=== PATIENT | female | born 1950 | race African-American/Black ===

== ENCOUNTER 2016-08-12 21:50 | Emergency (ER) | payer MEDICAID ==
[~2016-08-12] VITALS: Ht 154.9 cm; Wt 96.0 kg
[~2016-08-12 21:50] MED LIST: ACET-3161 PO; BENA40TA66 PO; CARI350T PO; DIAZ10TA PO; ESOM40CA PO; FERR-43 PO; FURO-151 PO; IBUP-1636 PO
[2016-08-13 00:17] LABS: CARBON DIOXIDE 25 mEq/L (21-32); CHLORIDE 101 mEq/L (98-107); INR 1.1; PROTHROMBIN TIME 11.6 sec; TROPONIN I < 0.02 ng/mL (0.00-0.04)
[2016-08-13 00:36] LABS: BASOPHILS % 0.1 % (0.0-2.0); HEMOGLOBIN. 9.8 g/dL (12.0-16.0); LYMPHOCYTES % 41.5 % (20.0-50.0); MEAN CORPUSCULAR HEMOGLOBIN 30.6 pg (28.0-32.0); MEAN CORPUSCULAR VOLUME 93.3 fL (81.0-99.0); MEAN PLATELET VOLUME 8.5 fl (7.4-10.4); MONOCYTES % 9.3 % (2.0-8.0); NEUTROPHILS % 49.1 % (40.0-76.0); PLATELET 121 x1000/uL (130-400); RED BLOOD CELL COUNT 3.21 mill/uL (4.2-5.4); RED CELL DISTRIBUTION WIDTH 13.2 % (11.6-14.6)
[2016-08-13] MEDS ORDERED: KETOROLAC 30MG/ML VIAL IV STA (02:24)
[2016-08-13] MEDS ORDERED: POTASSIUM CHLORIDE 20MEQ TABLET SR PO ONE (02:30)
[2016-08-13] MEDS ORDERED: SODIUM CHLORIDE 0.9% 500 ML IV ONE (02:30)
[2016-08-13] MEDS ORDERED: PANTOPRAZOLE SODIUM 40 MG/VIAL IV ONE (04:00)
[2016-08-13] MEDS ORDERED: MAGNESIUM/ALUMINUM HYDROXIDE/SIMETHICONE 30ML UDC PO ONE (04:00)
[2016-08-13 05:04] LABS: CARBON DIOXIDE 28 mEq/L (21-32); CHLORIDE 103 mEq/L (98-107); TROPONIN I < 0.02 ng/mL (0.00-0.04)
[2016-08-13] MEDS ORDERED: HYDRALAZINE 20MG/ML VIAL IV ONE (05:30)
[2016-08-13] MEDS ORDERED: MORPHINE SULFATE 4 MG/ML CPJ (NOT FOR IM USE) IV ONE (05:30)
[2016-08-13 05:52] VITALS: BP 138/65
== END 2016-08-13 06:31 | disposition home or self-care (01) ==
LOC: ER 08-13 02:08
DX: R07.9 Chest pain, unspecified (principal); R10.9 Unspecified abdominal pain; I11.0 Hypertensive heart disease with heart failure; I50.9 Heart failure, unspecified; E11.9 Type 2 diabetes mellitus without complications; Z79.899 Other long term (current) drug therapy
CPT/HCPCS: 36415; 71010; 74176; 80048; 80053; 83880; 84484; 85025; 85610; 93005; 96361; 96374; 96375; 99285; C9113; J0360; J1885; J2270; J7040; Z7610

== ENCOUNTER 2019-08-15 16:30 | Inpatient (IN) | payer MEDICAID ==
[~2019-08-15] VITALS: Ht 156.2 cm; Wt 98.2 kg
[~2019-08-15 16:30] MED LIST changes: -CARI350T PO; +CARI350T28 PO
[2019-08-15] MEDS ORDERED: ENOXAPARIN 80MG/0.8ML SYR SUBCUT ONE (23:00)
[2019-08-16] MEDS ORDERED: IPRATROPIUM/ALBUTEROL 0.5-3(2.5)MG/3ML NEB NEB PRN
[2019-08-16] MEDS ORDERED: CEFAZOLIN 1000MG PREMIX 50 ML IV ONE
[2019-08-16] MEDS ORDERED: GUAIFENESIN 200MG/10ML SUGAR FREE UDC PO PRN
[2019-08-16] MEDS ORDERED: LORAZEPAM 2MG/ML CPJ IV PRN
[2019-08-16] MEDS ORDERED: MORPHINE SULFATE 2 MG/ML CPJ (NOT FOR IM USE) IV PRN
[2019-08-16] MEDS ORDERED: MAGNESIUM/ALUMINUM HYDROXIDE/SIMETHICONE 30ML UDC PO PRN
[2019-08-16] MEDS ORDERED: NA PHOS,M-B/NA PHOS,DI-BA ENEMA 118ML PR PRN
[2019-08-16] MEDS ORDERED: ONDANSETRON HCL 4MG/2ML INJ IV PRN
[2019-08-16] MEDS ORDERED: DIPHENHYDRAMINE 50MG/ML VIAL IV PRN
[2019-08-16] MEDS ORDERED: DOCUSATE SODIUM 100MG CAPSULE PO PRN
[2019-08-16] MEDS ORDERED: ACETAMINOPHEN 325MG TABLET PO PRN
[2019-08-16 01:17] LABS: BASOPHILS % 0.3 % (0.0-2.0); EOSINOPHILS % 0.1 % (0.0-5.0); HEMATOCRIT. 27.2 % (36.0-48.0); HEMOGLOBIN. 8.9 g/dL (12.0-16.0); LYMPHOCYTES % 25.3 % (20.0-50.0); MEAN CORPUSCULAR HEMOGLOBIN 30.8 pg (28.0-32.0); MEAN CORPUSCULAR VOLUME 94.3 fL (81.0-99.0); MEAN PLATELET VOLUME 9.5 fl (7.4-10.4); NEUTROPHILS % 64.3 % (40.0-76.0); PLATELET 118 x1000/uL (130-400); RED BLOOD CELL COUNT 2.88 mill/uL (4.2-5.4); RED CELL DISTRIBUTION WIDTH 13.9 % (11.6-14.6)
[2019-08-16 01:19] LABS: CHLORIDE 110 mEq/L (98-107)
[2019-08-16 01:22] LABS: PROTHROMBIN TIME 10.4 sec (9.6-11.0)
[2019-08-16] MEDS: HYDROCODONE/ACETAMINOPHEN 5/325MG TABLET PO PRN ×2 (02:04→17:34)
[2019-08-16 05:20] LABS: CHLORIDE 111 mEq/L (98-107)
[2019-08-16 05:23] LABS: BASOPHILS % 0.3 % (0.0-2.0); EOSINOPHILS % 0.1 % (0.0-5.0); HEMATOCRIT. 26.3 % (36.0-48.0); HEMOGLOBIN. 8.8 g/dL (12.0-16.0); LYMPHOCYTES % 29.6 % (20.0-50.0); MEAN CORPUSCULAR HEMOGLOBIN 31.2 pg (28.0-32.0); MEAN CORPUSCULAR VOLUME 93.2 fL (81.0-99.0); MEAN PLATELET VOLUME 9.4 fl (7.4-10.4); MONOCYTES % 12.2 % (2.0-8.0); NEUTROPHILS % 57.8 % (40.0-76.0); PLATELET 120 x1000/uL (130-400); RED BLOOD CELL COUNT 2.83 mill/uL (4.2-5.4); RED CELL DISTRIBUTION WIDTH 13.9 % (11.6-14.6)
[2019-08-16 05:28] LABS: LDL CHOLESTEROL 91 mg/dL (5-100)
[2019-08-16 05:29] LABS: HDL CHOLESTEROL 86 mg/dL (40-59)
[2019-08-16 05:30] LABS: T4 FREE 1.09 ng/dL (0.76-1.46)
[2019-08-16] MEDS: ENOXAPARIN 80MG/0.8ML SYR SUBCUT SCH (11:00)
[2019-08-16] MEDS ORDERED: ENOXAPARIN 40MG/0.4ML SYR SUBCUT SCH (12:00)
[2019-08-16] MEDS: PANTOPRAZOLE 40MG DR TABLET PO SCH (12:45)
[2019-08-16 16:30] VITALS: BP 158/67
[2019-08-16 20:04] VITALS: BP 169/79
[2019-08-17] MEDS: ENOXAPARIN 80MG/0.8ML SYR SUBCUT SCH ×2 (00:01→10:58)
[2019-08-17 00:25] VITALS: BP 118/71
[2019-08-17] MEDS: HYDROCODONE/ACETAMINOPHEN 5/325MG TABLET PO PRN ×4 (03:33→23:24)
[2019-08-17 04:00] VITALS: BP 135/71
[2019-08-17] MEDS: PANTOPRAZOLE 40MG DR TABLET PO SCH (07:47)
[2019-08-17 08:00] VITALS: BP 147/67
[2019-08-17 09:40] LABS: HEMOGLOBIN 8.6 g/dL (12.0-16.0); MEAN CORPUSCULAR HEMOGLOBIN 30.6 pg (28.0-32.0); MEAN CORPUSCULAR VOLUME 92.7 fL (81.0-99.0); PLATELET 145 x1000/uL (130-400); RED BLOOD CELL COUNT 2.81 mill/uL (4.2-5.4); RED CELL DISTRIBUTION WIDTH 13.7 % (11.6-14.6)
[2019-08-17 11:12] LABS: T4 FREE 1.11 ng/dL (0.76-1.46)
[2019-08-17 12:00] VITALS: BP_SYST 157; BP_SYST 179; BP_DIAS 73; BP_DIAS 87
[2019-08-17] MEDS ORDERED: LIP40 PO (12:59)
[2019-08-17] MEDS ORDERED: METF-414 PO (12:59)
[2019-08-17] MEDS ORDERED: ASPI-1497 PO (12:59)
[2019-08-17] MEDS ORDERED: POTA-79 PO (12:59)
[2019-08-17] MEDS ORDERED: CARI250T PO (12:59)
[2019-08-17] MEDS ORDERED: FURO-151 PO (12:59)
[2019-08-17] MEDS ORDERED: LISI-186 PO (12:59)
[2019-08-17] MEDS ORDERED: FERR-71 PO (12:59)
[2019-08-17] MEDS ORDERED: OMEP40CA12 PO (12:59)
[2019-08-17 16:11] VITALS: BP 133/68
[2019-08-17 16:20] LABS: CREATINE KINASE 24 IU/L (26-192)
[2019-08-17 16:21] LABS: CREATINE KINASE MB FRACTION < 1.0 ng/mL (0.5-3.6)
[2019-08-17 20:47] VITALS: BP 116/39
[2019-08-17] MEDS: ENOXAPARIN 100MG/ML SYR SUBCUT SCH (23:12)
[2019-08-17 23:36] LABS: CREATINE KINASE 26 IU/L (26-192)
[2019-08-17 23:37] LABS: CREATINE KINASE MB FRACTION < 1.0 ng/mL (0.5-3.6)
[2019-08-18 00:07] VITALS: BP 152/72
[2019-08-18] MEDS: CLONIDINE 0.1MG TABLET PO PRN ×2 (04:09→09:38)
[2019-08-18] MEDS: HYDROCODONE/ACETAMINOPHEN 5/325MG TABLET PO PRN (04:09)
[2019-08-18] MEDS: PANTOPRAZOLE 40MG DR TABLET PO SCH (04:10)
[2019-08-18 04:21] VITALS: BP 168/72
[2019-08-18 08:00] VITALS: BP 163/80
[2019-08-18 09:03] LABS: BASOPHILS % 0.4 % (0.0-2.0); EOSINOPHILS % 0.1 % (0.0-5.0); HEMOGLOBIN. 8.9 g/dL (12.0-16.0); LYMPHOCYTES % 57.1 % (20.0-50.0); MEAN CORPUSCULAR HEMOGLOBIN 30.8 pg (28.0-32.0); MEAN PLATELET VOLUME 9.6 fl (7.4-10.4); MONOCYTES % 11.7 % (2.0-8.0); NEUTROPHILS % 30.7 % (40.0-76.0); PLATELET 146 x1000/uL (130-400); RED CELL DISTRIBUTION WIDTH 13.6 % (11.6-14.6)
[2019-08-18 09:23] LABS: CHLORIDE 110 mEq/L (98-107)
[2019-08-18 09:31] LABS: CREATINE KINASE 27 IU/L (26-192)
[2019-08-18 09:33] LABS: CREATINE KINASE MB FRACTION < 1.0 ng/mL (0.5-3.6)
[2019-08-18 11:18] VITALS: BP 155/76
[2019-08-18] MEDS: ENOXAPARIN 100MG/ML SYR SUBCUT SCH (11:34)
[2019-08-18 12:00] VITALS: BP 114/73
[2019-08-19 09:09] LABS: IMMUNOGLOBULIN A 357 mg/dL (87-352); IMMUNOGLOBULIN G 1739 mg/dL (586-1602); IMMUNOGLOBULIN M 76 mg/dL (26-217)
== END 2019-08-18 12:55 | disposition home or self-care (01) | DRG 197 ==
LOC: ER 16:40 → MICUSO 22:51 → 6WST 08-16 16:21
PROVIDERS: ADMIT Student in an Organized Health Care Education/Training Program; ATTEND Student in an Organized Health Care Education/Training Program
DX: I82.431 Acute embolism and thrombosis of right popliteal vein (principal); N17.0 Acute kidney failure with tubular necrosis; E46 Unspecified protein-calorie malnutrition; D69.6 Thrombocytopenia, unspecified; I50.9 Heart failure, unspecified; I11.0 Hypertensive heart disease with heart failure; E66.01 Morbid (severe) obesity due to excess calories; E11.9 Type 2 diabetes mellitus without complications; D64.9 Anemia, unspecified; H40.9 Unspecified glaucoma; K29.70 Gastritis, unspecified, without bleeding; Z79.84 Long term (current) use of oral hypoglycemic drugs; Z79.899 Other long term (current) drug therapy; Z79.1 Long term (current) use of non-steroidal anti-inflammatories (NSAID); Z68.41 Body mass index [BMI] 40.0-44.9, adult
CPT/HCPCS: 36415; 78580; 80048; 80053; 80061; 82270; 82550; 82553; 82668; 82784; 82962; 83036; 83880; 84439; 84443; 84484; 85025; 85027; 85379; 86334; 93005; 93306; 93971; 96365; 99285; J0690; J1650; J2270